=== PATIENT | female | born 1945 | race Caucasian/White ===

== ENCOUNTER 2016-07-09 10:07 | Emergency (ER) | payer OTHER ==
[~2016-07-09] VITALS: Ht 172.7 cm; Wt 93.6 kg
[~2016-07-09 10:07] MED LIST: LISI-167 PO; METF500T4 PO; OMEP-110 PO; SIMV20TA3 PO
[2016-07-09 10:08] VITALS: BP 163/82
[2016-07-09] MEDS ORDERED: CYCL1DRO EACHEYE (11:09)
== END 2016-07-09 11:43 | disposition home or self-care (01) ==
LOC: ED 11:35
DX: K02.9 Dental caries, unspecified (principal); K21.9 Gastro-esophageal reflux disease without esophagitis; I10 Essential (primary) hypertension; E78.00 Pure hypercholesterolemia, unspecified; E11.9 Type 2 diabetes mellitus without complications; F17.210 Nicotine dependence, cigarettes, uncomplicated
CPT/HCPCS: 99283

== ENCOUNTER 2019-02-16 12:48 | Emergency (ER) | payer OTHER ==
[~2019-02-16] VITALS: Ht 172.7 cm; Wt 85.0 kg
[~2019-02-16 12:48] MED LIST changes: +CYCL1DRO EACHEYE; +METF500T17 PO; -METF500T4 PO
[2019-02-16 12:52] VITALS: BP 158/90
[2019-02-16] MEDS ORDERED: DIAZEPAM 5 MG TABLET PO ONE (13:30)
[2019-02-16] MEDS ORDERED: OXYcodone/APAP 5/325MG TABLET PO ONE (13:30)
[2019-02-16 13:36] LABS: BASOPHILS # (AUTO) 0.08 x10^3/uL (0-0.1); BASOPHILS % (AUTO) 1 % (0-1); EOSINOPHILS # (AUTO) 0.16 x10^3/uL (0-0.4); EOSINOPHILS % (AUTO) 2 % (1-7); LYMPHOCYTES # (AUTO) 2.84 x10^3/uL (1-3.4); LYMPHOCYTES % (AUTO) 31 % (22-44); MD NO; MEAN CORPUSCULAR HEMOGLOBIN 29.3 pg (27.0-34.8); MEAN CORPUSCULAR HGB CONC 32.6 g/dL (32.4-35.8); MEAN CORPUSCULAR VOLUME 89.8 fL (80-100); MEAN PLATELET VOLUME 9.6 fL (7.4-10.4); MONOCYTES # (AUTO) 0.64 x10^3/uL (0.2-0.8); MONOCYTES % (AUTO) 7 % (2-9); NEUTROPHILS # (AUTO) 5.42 x10^3/uL (1.8-6.8); NEUTROPHILS % (AUTO) 59 % (42-75); PLATELET COUNT 208 x10^3/uL (130-400); RED BLOOD COUNT 5.22 x10^6/uL (3.82-5.3); RED CELL DISTRIBUTION WIDTH 14.1 % (9.6-15.2)
[2019-02-16 13:44] LABS: ALBUMIN 3.6 g/dL (3.4-5.0); ANION GAP 7 mmol/L (5-15); CALCIUM 8.5 mg/dL (8.5-10.1); CHLORIDE 105 mmol/L (98-107); CREATININE 0.99 mg/dL (0.55-1.02)
[2019-02-16] MEDS ORDERED: OXYcodone/APAP 5/325MG TABLET ONE (14:03)
[2019-02-16] MEDS ORDERED: DIAZEPAM 5 MG TABLET ONE (14:03)
--- NOTE | 2019-02-16 14:10 | NUR ---
MEDICATED PER EMAR UA SENT
[2019-02-16 14:25] LABS: MICROSCOPIC NOT IND
[2019-02-16 14:30] LABS: CULTURE INDICATED? NO
--- NOTE | 2019-02-16 14:55 | NUR ---
PAIN IMPROVED TO 4/10 ABLE TO AMBULATE WITH PROVIDED CANE (EMT SUPPLIED) REVIEWED IMPORTANCE OF R.I.C.E /CORE STRENGTHENING EXERCISES
== END 2019-02-16 14:59 | disposition home or self-care (01) ==
LOC: ED 14:12
DX: M51.36 Other intervertebral disc degeneration, lumbar region (principal); M51.34 Other intervertebral disc degeneration, thoracic region; I10 Essential (primary) hypertension; E11.9 Type 2 diabetes mellitus without complications; K21.9 Gastro-esophageal reflux disease without esophagitis; E78.00 Pure hypercholesterolemia, unspecified
CPT/HCPCS: 36415; 72110; 80048; 81003; 82040; 85025; 99283